=== PATIENT | female | born 1990 | race Caucasian/White ===

== ENCOUNTER 2018-10-14 01:49 | Emergency (ER) | payer OTHER ==
[~2018-10-14] VITALS: Ht 165.1 cm; Wt 105.6 kg
[~2018-10-14 01:49] MED LIST: AZIT250T PO; GUAI-637 PO
[2018-10-14 02:05] VITALS: Ht 165.1 cm; Wt 105.6 kg
[2018-10-14] MEDS ORDERED: ALBUTEROL 0.083% (NEB) 2.5 MG/3 ML AMP NEB STA (02:44)
[2018-10-14] MEDS ORDERED: IPRATROPIUM (NEB) 0.5 MG/2.5 ML AMP NEB STA (02:44)
[2018-10-14] MEDS ORDERED: ONDANSETRON 4 MG INJ IV STA (03:52)
[2018-10-14] MEDS ORDERED: KETOROLAC 30 MG INJ IV STA (03:52)
[2018-10-14 03:53] VITALS: PULSE 88; RESP 22
== END 2018-10-14 04:25 | disposition home or self-care (01) ==
LOC: FTE 01:49
DX: O26.892 Other specified pregnancy related conditions, second trimester (principal); R05 Cough; Z3A.20 20 weeks gestation of pregnancy
CPT/HCPCS: 94664; Z7502; Z7610